=== PATIENT | female | born 1945 | race Caucasian/White ===

== ENCOUNTER 2020-05-11 13:08 | Inpatient (IN) | payer MEDICARE ==
[~2020-05-11] VITALS: Ht 165.1 cm; Wt 63.5 kg
--- NOTE | 2020-05-11 13:26 | NUR ---
GPS RN note: Admission Patient is a 75 year old female admitted from [facility] on a 5150 for Danger to Self. Patient was transferred on a gurney by EMS. Patient is on a hold for Danger to Self for suicidal ideation. Patient stated she was going to OD on her medications. Patient was acutely intoxicated. Upon face to face evaluation, Patient endorsed drinking vodka and blacking out and calling the Suicide Hotline. She states she was not suicidal but is being "set up". Patient is well groomed with appropriate mood and affect. Currently denies SI/HI/VAH. Informed MD and psychiatrist and received admitting orders. Patients rights handbook and guide to prescriptions given. Patient oriented to unit. Bed in low and locked position with 2 side rails up for safety. Bed alarm on. Will continue to monitor patient Q15 for mood, safety and behavior.
[2020-05-11] MEDS ORDERED: TRAZ-257 PO (13:35)
[2020-05-11] MEDS ORDERED: ESCI20TA PO (13:35)
[2020-05-11] MEDS ORDERED: PROP10TA10 PO (13:35)
[2020-05-11] MEDS ORDERED: CLON1TAB12 PO (13:35)
[2020-05-11] MEDS ORDERED: LEVO88TA5 PO (13:35)
[2020-05-11] MEDS ORDERED: TRIA15CR2 TP (13:36)
[2020-05-11] MEDS ORDERED: BLOOD SUGAR DIAGNOSTIC 1 EACH STRIP IN ONE (14:00)
[2020-05-11] MEDS ORDERED: MAGNESIUM HYDROXIDE 30 ML UDC PO PRN (14:00)
[2020-05-11] MEDS ORDERED: MAG HYDROX/AL HYDROX/SIMETH 30 ML UDC PO PRN (14:00)
[2020-05-11 14:02] VITALS: BP 162/81
--- NOTE | 2020-05-11 15:19 | NUR ---
Social Work Initial Discharge Plan: Patient currently resides at [address] [place] [address] [place] [address]; ([phone]) alone and would like to return back home upon discharge. dry transfer worker will work with the MD, treatment team, and family to help coordinate proper discharge plan.
--- NOTE | 2020-05-11 15:35 | NUR ---
Social Work Family Contact: lay out worker contacted patient's daughter Salma ([phone]) and left a voicemail to call this leader writer back.
[2020-05-11 16:00] VITALS: BP 164/78
[2020-05-11] MEDS: PROPRANOLOL HCL 10 MG TABLET PO SCH (17:21)
[2020-05-11 20:42] VITALS: BP_SYST 145; BP_SYST 167; BP_DIAS 74; BP_DIAS 87
[2020-05-11] MEDS: ACETAMINOPHEN 325 MG TABLET PO PRN (21:02)
[2020-05-11 21:21] LABS: CHOLESTEROL 221 mg/dL (<200); TRIGLYCERIDES 55 mg/dL (30-150)
[2020-05-11 21:22] LABS: HDL CHOLESTEROL 112 mg/dL (40-60); LDL 96 mg/dL (0-99)
--- NOTE | 2020-05-11 21:43 | NUR ---
GPS RN NOTES: PAGED SAGAR ORDONEZ NP TO NOTIFY HER OF THE PATIENT'S BLOOD PRESSURE- 164/95, NO COMPLAINS OF PAIN, NO SYMPTOMS REPORTED. SAGAR CALLED PRESIDENT CEO & FOUNDER BACK RIGHT AWAY. WAITING FOR SOME ORDERS AT THIS TIME.
[2020-05-11] MEDS: TEMAZEPAM 7.5 MG CAPSULE PO PRN (21:51)
[2020-05-11 22:59] VITALS: BP 160/83
[2020-05-11] MEDS: hydrALAZINE HCL 10 MG TABLET PO PRN (23:02)
[2020-05-12 00:19] VITALS: BP 153/67
[2020-05-12] MEDS: LORAZEPAM 0.5 MG TABLET PO PRN ×2 (00:20→23:50)
[2020-05-12 07:20] LABS: BASOPHILS # (AUTO) 0.1 /CMM (0.0-0.2); BASOPHILS % (AUTO) 0.9 % (0.0-2.0); EOSINOPHILS % (AUTO) 2.1 % (0.0-6.0); HEMATOCRIT 39 % (33-45); HEMOGLOBIN 12.7 g/dL (11.5-14.8); LYMPHOCYTES # (AUTO) 2.1 /CMM (0.8-4.8); LYMPHOCYTES % (AUTO) 34.7 % (20.0-44.0); MEAN CORPUSCULAR HGB CONC 33 g/dl (31.0-36.0); MEAN CORPUSCULAR VOLUME 104 fL (82-100); MONOCYTES # (AUTO) 0.5 /CMM (0.1-1.30); MONOCYTES % (AUTO) 8.1 % (2.0-12.0); NEUTROPHILS # (AUTO) 3.2 /CMM (1.8-8.9); NEUTROPHILS % (AUTO) 54.2 % (43.0-81.0); PLATELET COUNT (AUTO) 252 /CMM (150-450); RED BLOOD CELL COUNT(AUTO) 3.71 MIL/uL (4.0-5.2); WHITE BLOOD COUNT (AUTO) 5.9 K/uL (4.3-11.0)
[2020-05-12] MEDS: hydrALAZINE HCL 10 MG TABLET PO PRN (07:50)
[2020-05-12] MEDS: LEVOTHYROXINE SODIUM 88 MCG TABLET PO SCH (07:50)
[2020-05-12 07:55] LABS: ALBUMIN 3.4 g/dL (3.4-5.0); BILIRUBIN,TOTAL 0.8 mg/dL (0.2-1.0); CALCIUM, SERUM 9.2 mg/dL (8.5-10.1); CREATININE 0.7 mg/dL (0.6-1.3); MAGNESIUM 2.1 mg/dL (1.8-2.4); PHOSPHORUS 2.9 mg/dL (2.5-4.9); POTASSIUM 3.6 mmol/L (3.5-5.1); TOTAL PROTEIN, SERUM 6.9 g/dL (6.4-8.2)
[2020-05-12] MEDS: ACETAMINOPHEN 325 MG TABLET PO PRN ×2 (07:55→16:08)
--- NOTE | 2020-05-12 07:55 | NUR ---
GPS RN NOTES Patient stated mild pain on left hip s/p fall from two weeks ago. Administered Tylenol 650mg PO per Patients request. Patient in stable condition, eating breakfast in bed. Will continue to monitor.
[2020-05-12 08:00] VITALS: BP 162/84
[2020-05-12 08:06] LABS: THYROID STIMULATING HORMONE 1.743 uIU/mL (0.358-3.74)
[2020-05-12] MEDS: TRIAMCINOLONE ACETONIDE 0.5% 15 GM TUBE TP SCH (08:55)
[2020-05-12] MEDS: PROPRANOLOL HCL 10 MG TABLET PO SCH ×3 (08:56→16:55)
[2020-05-12] MEDS: ESCITALOPRAM OXALATE (10 MG) 10 MG TABLET PO SCH (10:49)
--- NOTE | 2020-05-12 14:08 | NUR ---
Social Work Substance Abuse Intervention: Patient was provided with a brief substance abuse intervention and referred to the following substance abuse programs: [facility] Self[facility] ([phone]); [facility] [address] [place] [address] ([phone]); [facility] [address] [facility] [address] ([phone]); [facility] ([phone]); [facility] ([phone]); [facility] ([phone]); [facility] ([phone]).
--- NOTE | 2020-05-12 14:49 | NUR ---
Social Work Group Note: bilingual patient support caseworker invited pt to join group. Pt refused to join group but wanted to briefly discuss with pt. Pt stated that she is unsure to why she was brought to the unit and that she just "blacked out". Pt was then able to identify that she was drinking. Pt reported to this check writer salesperson that she wants to stop drinking and will continue to attending her AA meetings. bilingual patient support caseworker actively listened and provided emotional support.
[2020-05-12 16:00] VITALS: BP 147/75
[2020-05-12 19:51] VITALS: BP 149/91
[2020-05-12] MEDS: TEMAZEPAM 7.5 MG CAPSULE PO PRN (22:01)
--- NOTE | 2020-05-12 23:54 | NUR ---
GPS RN NOTES: PT UNABLE TO SLEEP AFTER TAKING RESTORIL 7.5MG 1 CAP PO AT 2200 UPON REQUEST. REPORTS BEING ANXIOUS AT 2350. ATIVAN 0.5MG 1 TAB GIVEN PO ORDERED. PT CURRENTLY LAYING ON BED. NO S/S OF DISTRESS. WILL CONTINUE TO MONITOR.
[2020-05-13 08:00] VITALS: BP 169/94
[2020-05-13] MEDS: ESCITALOPRAM OXALATE (10 MG) 10 MG TABLET PO SCH (08:24)
[2020-05-13] MEDS: LEVOTHYROXINE SODIUM 88 MCG TABLET PO SCH (08:25)
[2020-05-13] MEDS: PROPRANOLOL HCL 10 MG TABLET PO SCH (08:25)
[2020-05-13] MEDS: TRIAMCINOLONE ACETONIDE 0.5% 15 GM TUBE TP SCH (08:40)
[2020-05-13] MEDS: hydrALAZINE HCL 10 MG TABLET PO PRN ×2 (09:24→20:20)
[2020-05-13 10:09] VITALS: BP 149/71
[2020-05-13] MEDS: ACETAMINOPHEN 325 MG TABLET PO PRN ×2 (11:37→22:47)
[2020-05-13] MEDS: ARIPIPRAZOLE 2 MG TABLET PO SCH ×2 (12:52→16:07)
[2020-05-13 16:00] VITALS: BP 125/67
[2020-05-13 20:18] VITALS: BP 158/90
[2020-05-13 20:18] LABS: APPEARANCE,URINE CLEAR (CLEAR); BILIRUBIN,URINE NEGATIVE (NEGATIVE); BLOOD, URINE SMALL Ery/uL (NEGATIVE); COLOR,URINE YELLOW (YELLOW); KETONES,URINE NEGATIVE (NEGATIVE); LEUKOCYTE ESTERASE ,URINE SMALL (NEGATIVE); NITRITE, URINE NEGATIVE (NEGATIVE); PROTEIN,URINE NEGATIVE (NEGATIVE); UGLUCOSE NEGATIVE (NEGATIVE); UROBILINOGEN,URINE 0.2 EU/dL (0.2)
--- NOTE | 2020-05-13 20:39 | NUR ---
GPS RN NOTE: RECEIVED PT IN HALLWAY, AWAKE, ALERT AND ORIENTED 3. APPROPRIATE AFFECT, THOUGHT PROCESS IS INTACT, CALM AND COOPERATIVE, GUARDED. ABLE TO MAKE NEEDS KNOWN. VITAL SIGNS TAKEN, BP158/90, P80, HYDRALAZINE 10MG 1 TAB GIVEN PO ORDERED FOR SYSTOLIC BP OVER 150. NO S/S OF DISTRESS AT THIS TIME. RESPIRATION EVEN AND UNLABORED WITH EQUAL RISE AND FALL OF THE CHEST, ON ROOM AIR WITH SPO2 OF 98%. PT DENIES SI AT THIS TIME. WILL ADMINISTER MEDICATIONS ORDERED. OFFERED FLUID AND SNACK TOLERATED. SAFETY AND FALL PRECAUTION OBSERVED, CALL NELSON WITHIN REACH. Q15 MINUTES OBSERVATION CONTINUED. WILL CONTINUE TO MONITOR PT For MOOD, SAFETY AND BEHAVIOR.
[2020-05-13] MEDS: CARVEDILOL 12.5 MG TABLET PO SCH (21:53)
[2020-05-13] MEDS: LORAZEPAM 0.5 MG TABLET PO PRN (22:17)
--- NOTE | 2020-05-13 22:56 | NUR ---
GPS RN NOTE: VITAL SIGNS AT 2200 BP147/85, P 79, COREG 12.5MG 1 TAB GIVEN PO ORDERED. PT ALSO REQUESTED FOR ATIVAN FOR ANXIETY AT 2217 AND TYLENOL AT 2247 FOR RIGHT BUTTOCKS PAIN. MEDICATIONS ADMINISTERED ORDERED. WILL CONTINUE TO MONITOR.
[2020-05-13] MEDS: TEMAZEPAM 7.5 MG CAPSULE PO PRN (23:14)
[2020-05-14 08:00] VITALS: BP 141/70
[2020-05-14] MEDS: ARIPIPRAZOLE 2 MG TABLET PO SCH ×2 (08:41→17:21)
[2020-05-14] MEDS: LEVOTHYROXINE SODIUM 88 MCG TABLET PO SCH (08:41)
[2020-05-14] MEDS: ESCITALOPRAM OXALATE (10 MG) 10 MG TABLET PO SCH (08:41)
[2020-05-14] MEDS: CARVEDILOL 12.5 MG TABLET PO SCH ×2 (08:42→21:07)
[2020-05-14] MEDS ORDERED: TRIAMCINOLONE ACETONIDE 0.5% 15 GM TUBE TP PRN (09:30)
--- NOTE | 2020-05-14 14:12 | NUR ---
RN NOTES ADMINISTERED MILK OF MAGNESIA 30 ML FOR CONSTIPATION PER PATIENT REQUEST.
[2020-05-14] MEDS: LORAZEPAM 0.5 MG TABLET PO PRN ×2 (15:07→22:00)
--- NOTE | 2020-05-14 15:07 | NUR ---
RN NOTES ADMINISTERED ATIVAN 0.5 MG PO PRN FOR ANXIETY PER PATIENT REQUEST, V/S TAKEN WNL.
[2020-05-14 16:00] VITALS: BP 132/82
[2020-05-14 20:03] VITALS: BP 134/77
--- NOTE | 2020-05-14 22:02 | NUR ---
GPS-RN NOTE: ANXIETY PATIENT C/O FEELING ANXIOUS. PT IS REQUESTING FOR ATIVAN. ADMINISTERED ATIVAN 0.5MG PO ORDERED. WILL CONTINUE TO MONITOR FOR SAFETY AND BEHAVIOR.
[2020-05-14] MEDS: ACETAMINOPHEN 325 MG TABLET PO PRN (22:33)
--- NOTE | 2020-05-14 22:34 | NUR ---
GPS-RN NOTE: RIGHT BUTTOCK PAIN PATIENT C/O PAIN ON HER RIGHT BUTTOCK AND REQUESTED FOR TYLENOL. ADMINISTERED ACETAMINOPHEN 650MG PO ORDERED. WILL CONTINUE TO MONITOR FOR THE EFFECTIVENESS OF MEDICATION.
[2020-05-14] MEDS: TEMAZEPAM 7.5 MG CAPSULE PO PRN (23:42)
--- NOTE | 2020-05-14 23:43 | NUR ---
GPS-RN NOTE: INSOMNIA PATIENT C/O INABILITY TO SLEEP. ADMINISTERED RESTORIL 7.5MG PO ORDERED PER PT'S REQUEST. WILL CONTINUE TO MONITOR.
[2020-05-15 08:00] VITALS: BP 116/61
[2020-05-15] MEDS: LEVOTHYROXINE SODIUM 88 MCG TABLET PO SCH (08:21)
[2020-05-15] MEDS: ESCITALOPRAM OXALATE (10 MG) 10 MG TABLET PO SCH (08:21)
[2020-05-15] MEDS: CARVEDILOL 12.5 MG TABLET PO SCH ×2 (08:22→21:11)
[2020-05-15] MEDS: ARIPIPRAZOLE 2 MG TABLET PO SCH ×2 (08:22→16:08)
[2020-05-15 16:00] VITALS: BP 146/86
[2020-05-15] MEDS: LORAZEPAM 0.5 MG TABLET PO PRN (18:42)
--- NOTE | 2020-05-15 18:43 | NUR ---
RN NOTE:PATIENT C/O ANXIETY MEDICATED WITH ATIVAN 0.5MG X1 WILL CONTINUE TO MONITOR.
[2020-05-15 20:04] VITALS: BP 148/78
[2020-05-15] MEDS: TEMAZEPAM 7.5 MG CAPSULE PO PRN (22:05)
--- NOTE | 2020-05-15 22:05 | NUR ---
GPS-RN NOTE: INSOMNIA PATIENT C/O INABILITY TO SLEEP. ADMINISTERED RESTORIL 7.5MG PO ORDERED PER PT'S REQUEST. WILL CONTINUE TO MONITOR.
[2020-05-16] MEDS: LORAZEPAM 0.5 MG TABLET PO PRN ×2 (00:49→20:19)
--- NOTE | 2020-05-16 00:49 | NUR ---
GPS-RN NOTE: ANXIETY PATIENT C/O FEELING ANXIOUS. PT IS REQUESTING FOR ATIVAN. ADMINISTERED ATIVAN 0.5MG PO ORDERED. WILL CONTINUE TO MONITOR FOR SAFETY AND BEHAVIOR.
--- NOTE | 2020-05-16 07:30 | NUR ---
RECEIVED PT. IN AM,ALERT AND ORIENTED X3.NO COMPLAINTS OFFERED.
[2020-05-16 08:00] VITALS: BP 123/51
[2020-05-16] MEDS: ARIPIPRAZOLE 2 MG TABLET PO SCH ×2 (08:08→17:10)
[2020-05-16] MEDS: LEVOTHYROXINE SODIUM 88 MCG TABLET PO SCH (08:08)
[2020-05-16] MEDS: CARVEDILOL 12.5 MG TABLET PO SCH ×2 (08:08→21:28)
[2020-05-16] MEDS: ESCITALOPRAM OXALATE (10 MG) 10 MG TABLET PO SCH (08:09)
--- NOTE | 2020-05-16 09:19 | NUR ---
[facility] [facility] Contact: UZAIR called Hodaroberta Owens ([phone]) at [facility] to set up transportation for the pt and was informed that she is out of the office. UZAIR then called the Nursing Station ([phone]) and was transferred to Community Development Technician, Elizabeth, who stated that she will arrange the transportation and then call the SW back.
--- NOTE | 2020-05-16 11:08 | NUR ---
Partial Program Referral: SW faxed a referral to [facility] with attn to Marli to the fax number: [phone].
--- NOTE | 2020-05-16 13:05 | NUR ---
Individual Intervention with the Pt: SW informed the pt that she was accepted to a Partial Program and that she would have a copay of $75 per day. Pt stated that was a significant amount of money but stated that she is motivated to get better. Pt stated that she will make every attempt to attend this partial program.
[2020-05-16] MEDS: ACETAMINOPHEN 325 MG TABLET PO PRN (13:20)
--- NOTE | 2020-05-16 13:28 | NUR ---
given tylenol for pain in rt. buttocks.
[2020-05-16 16:00] VITALS: BP 143/59
--- NOTE | 2020-05-16 17:54 | NUR ---
RN-Co: DR PAVON ORDERED TO DISCHARGE THE PATIENT TOMORROW 05/17/20 AT 5:30 AM AND DISCONTINUE HOLD ON THE SAME DATE AND TIME NOTED. PATIENT WILL BE GOING HOME WITH A TAXI VOUCHER GIVEN TO HER BY THE STAFF IN ORDER TO TAKE HER TO [employer]. TICKET WAS ALSO PRINTED AND GIVEN TO HER BY BUNNY DUNNE.COPY IN THE CHART. SHE IS ALERT AND ORIENTED X 4. ABLE TO MAKE DECISION FOR HERSELF AND SHE CAN TAKE CARE OF HERSELF. SHE DENIES SUICIDAL AND HOMICIDAL IDEATIONS. SHE DENIES AUDITORY AND VISUAL HALLUCINATIONS. HER AFFECT IS APPROPRIATE AND BRIGHT WHEN APPROACH. PRESCRIPTION WRITTEN BY DR PAVON WILL BE GIVEN AND EXPLAINED TO HER.
[2020-05-16 19:53] VITALS: BP 153/74
--- NOTE | 2020-05-16 20:21 | NUR ---
GPS RN NOTE: PT REQUESTED FOR ATIVAN FOR ANXIETY AT 2119. ATIVAN 0.5MG 1 TAB GIVEN PO ORDERED. WILL CONTINUE TO MONITOR
[2020-05-16] MEDS: TEMAZEPAM 7.5 MG CAPSULE PO PRN (21:28)
--- NOTE | 2020-05-17 05:41 | NUR ---
GPS SENIOR PARTNER NOTE: PT WAS DISCHARGED AT 0532, A/O X4, CALM AND COOPERATIVE. DENIES SUICIDAL AND HOMICIDAL IDEATION. DENIES AUDITORY/VISUAL HALLUCINATIONS. NO ACUTE DISTRESS NOTED. DENIES PAIN AND DISCOMFORTS. V/S AT 0505 = T98.2, P 73, BP139/75, O2 100%. AFFECT IS BRIGHT AND APPROPRIATE. DISCHARGE TEACHING PROVIDED, PRESCRIPTION MEDICATIONS GIVEN AND INSTRUCTION GIVEN TO GET IT FILLED AT HER LOCAL PHARMACY. EDUCATION PROVIDED ON THE IMPORTANCE OF MEDICATION COMPLIANCE. AM SHIFT INFORMED [employer] ABOUT PATIENT AIDS NURSE AT 0530. PM SHIFT CALLED [employer] AT 0400 AND SPOKE WITH RENETTA FOR PATIENT AIDS NURSE AT 0530 PREVIOUSLY ARRANGED. AT 0515 RENETTA AT [employer] INFORMED ME THEY WILL NO LONGER BE ABLE TO GET A ANIMAL HERDER TO AIDS NURSE PATIENT AT 0530. UBER RIDE WAS THEN ARRANGED TO [facility]. PT AWARE OF HOW [facility]. ALL PATIENT BELONGINGS GIVEN TO PT. BREAKFAST INCLUDING JUICE GIVEN TO PATIENT. PT VERBALIZED UNDERSTANDING OF ALL DC PLANS.
--- NOTE | 2020-05-17 06:16 | NUR ---
GPS RN NOTE: PT WAS DISCHARGE AT 0532 AND TAKEN TO [facility] BY [facility]BER TRANSPORTATION BUT WAS LATER BROUGHT BACK TO [facility] AT 0610. PER LITIGATION SPECIALIST AND PT THE [facility] BUS STATION DOES NOT OPEN UNTIL 1PM. [facility] ADMITTING DEPARTMENT WAS CALLED AND REPORT GIVEN. PT WAS READMITTED AND CURRENTLY IN HER ROOM. WILL CONTINUE TO MONITOR.
[2020-05-17] MEDS: ACETAMINOPHEN 325 MG TABLET PO PRN (07:26)
[2020-05-17] MEDS: LEVOTHYROXINE SODIUM 88 MCG TABLET PO SCH (07:26)
--- NOTE | 2020-05-17 07:30 | NUR ---
received pt. alert and oriented x3,vs stable.no complaints.
[2020-05-17] MEDS: ESCITALOPRAM OXALATE (10 MG) 10 MG TABLET PO SCH (07:58)
[2020-05-17] MEDS: ARIPIPRAZOLE 2 MG TABLET PO SCH (07:59)
[2020-05-17 08:00] VITALS: BP 117/69
[2020-05-17] MEDS: CARVEDILOL 12.5 MG TABLET PO SCH (08:00)
--- NOTE | 2020-05-17 08:05 | NUR ---
Individual Intervention: SW spoke to the pt regarding her discharge. She went to the [email or web address] station this morning and saw a sign that stated, "Will return at 1pm." Pt became nervous and did not want to go check as the catering truck driver stated that he would not wait for her. Pt decided to come back to the hospital to arrange a different plan. SW called the [email or web address] Bus and they stated that they were open at the time the pt arrived but the sign was left over from the previous day. Pt stated that she will take an Uber back to her home because she did not want to be in the hospital any longer.
--- NOTE | 2020-05-17 08:22 | NUR ---
medicated for rt. buttocks's pain with tylenol 650 mg po.given all belongings and uber called for pt. to be transported home.left unit for transport home.pt denies suicidal/homicidal ideation as well as visual hallucinations.
--- NOTE | 2020-05-17 09:49 | NUR ---
Discharge Note: Pt was discharged back to her home located at [address], [place] [address]; ([phone]). Pt was transported via Uber around 0815. Upon discharge, pt appeared to be in a euthymic mood and presented with a calm affect. Pt denied both suicidal and homicidal ideation as well as auditory and visual hallucinations. Pt appeared to be alert and oriented x4 (time, place, self and situation). Pt appears to be ambulatory with a steady gait. Pt was given substance abuse referrals at the time of discharge and was referred for follow up. Pt will be under the care of [facility] located at [address] [place] [address]; ; fax: for psychiatric services. Pt will continue to be under the care of university librarian, Dr. Marilyn Muhammad, [facility] located at [address] [place] [address]; . [facility]errals: [facility] [address], [place] [address] [facility]: Outpatient Rehab [address] [place] [address]
== END 2020-05-17 08:15 | disposition home or self-care (01) | DRG 885 ==
LOC: GPS 13:08 → UNDODISIN 05-17 05:41
PROVIDERS: ADMIT Psychiatry & Neurology Psychosomatic Medicine
DX: F33.3 Major depressive disorder, recurrent, severe with psychotic symptoms (principal); R45.851 Suicidal ideations; F41.9 Anxiety disorder, unspecified; Z72.89 Other problems related to lifestyle; E03.9 Hypothyroidism, unspecified; I10 Essential (primary) hypertension
CPT/HCPCS: 36415; 80053-TC; 80061-TC; 81000-TC; 82962-TC; 83735-TC; 84100-TC; 84443-TC; 85025-TC; 87081-TC; 87086-TC